=== PATIENT | female | born 1985 | race Caucasian/White ===

== ENCOUNTER 2017-03-26 10:00 | Outpatient (CLI) | payer BC, SELFPAY | END 2017-03-26 10:40 | disposition home or self-care (01) | LOC: WPOUT 15:00 → WP 15:01 | PROVIDERS: Family Provider Family Medicine; PCP Family Medicine; Visit Provider Obstetrics & Gynecology | DX: O92.70 Unspecified disorders of lactation (principal) | CPT/HCPCS: 96152 ==

== ENCOUNTER → 2018-12-17 | Outpatient (CLI) | payer OTHER, SELFPAY ==
[2018-12-17 08:30] VITALS: BMI 23.3
[2018-12-17 19:15] LABS: Chlamydia Trachomatis by PCR Negative (Negative); Neisserai gonorrhoeae by PCR Negative (Negative); Probe Check PASS; Sample Adequacy Control PASS; Specimen Processing Control PASS
[2018-12-22 16:49] LABS: HPV APTIMA, High Risk Negative (Negative)
== END | disposition home or self-care (01) ==
LOC: LABSPEC 15:18
PROVIDERS: Family Provider Family Medicine; PCP Family Medicine; Referring Provider Nurse Practitioner Women's Health; Visit Provider Nurse Practitioner Women's Health
DX: Z34.80 Encounter for supervision of other normal pregnancy, unspecified trimester (principal)
CPT/HCPCS: 87086; 87088; 87491; 87591; 87624; 88175; G0145

== ENCOUNTER → 2018-12-25 | Outpatient (CLI) | payer OTHER, SELFPAY ==
[2018-12-17 08:30] VITALS: BMI 23.3
[2018-12-25 17:10] LABS: Absolute Lymphocyte Count 1.85 X10^3/uL (0.83-4.51); Absolute Neutrophil Count 8.5 X10^3/uL (2.0-7.7); Basophil# 0.05 X10^3/uL; Basophil% 0.4 % (0-1); Eosinophil# 0.06 X10^3/uL; Eosinophils% 0.5 % (0-5); Hematocrit 36.9 % (37-47); Hemoglobin 12.1 g/dL (12.0-15.0); Lymphocyte # 1.85 X10^3/ul (4.0); Lymphocyte % 16.1 % (19-41); Mean Corp Hgb Conc 32.8 g/dL (32-36); Mean Corpuscular Hgb 29.4 pg (27.0-32.0); Mean Corpuscular Volume 89.8 fL (81-99); Mean Platelet Vol. 10.7 fl (6.2-12.0); Monocyte# 1.03 X10^3/uL; Monocyte% 8.9 % (0-10); NRBC Flagged by Analyzer 0 % (0-5); Neutrophil # 8.48 X10^3/uL (2.7-7.7); Neutrophil % 73.7 % (47-70); Platelet Count 271 K/mm3 (150-450); RBC Distribution Width CV 12.3 % (11.6-14.6); RBC Distribution Width SD 40.6 fl (35.1-43.9); Red Blood Count 4.11 M/mm3 (4.2-5.4); White Blood Count 11.5 K/mm3 (4.4-11.0)
[2018-12-25 18:21] LABS: HIV - WCH Non-Reactive (Nonreactive); Rubella IgG 61.1 IU/mL
[2018-12-26 02:38] LABS: Rapid Plasmin Reagin (RPR) NONREACTIVE (NONREACTIVE)
== END | disposition home or self-care (01) ==
LOC: LAB 15:44
PROVIDERS: Family Provider Family Medicine; PCP Family Medicine; Referring Provider Nurse Practitioner Women's Health; Visit Provider Nurse Practitioner Women's Health
DX: Z34.81 Encounter for supervision of other normal pregnancy, first trimester (principal)
CPT/HCPCS: 85025; 86592; 86703; 86762; 86850; 86900; 86901

== ENCOUNTER → 2018-12-30 | Outpatient (CLI) | payer OTHER, SELFPAY ==
[2018-12-17 08:30] VITALS: BMI 23.3
--- NOTE | 2018-12-30 08:55 | US_ITS ---
STUDY: FIRST TRIMESTER OBSTETRICAL ULTRASOUND REASON FOR EXAM: Female, 33 years old . dates. LMP: October 15, 2018 TECHNIQUE: Transabdominal and Transvaginal TECHNICAL QUALITY: Adequate. PRIOR ULTRASOUND: None. FINDINGS: There is visualization of a single gestational sac in a normal intrauterine position. The gestational sac shape is within normal limits. There is a visualized yolk sac. The yolk sac measures 5.4 mm. The placenta lies posteriorly. There is visualization of a live embryo. The crown-rump length (CRL) measures 4.2 cm, indicating an estimated gestational age (EGA) of 10 weeks, 5 days. There is demonstrated cardiac activity with a heart rate of 156 bpm. The estimated gestation age (EGA) by LMP is 10 weeks, 6 days. The estimated date of delivery (ROMAINE) by LMP is July 21, 2018. The estimated gestation age (EGA) by US is 10 weeks, 5 days. The estimated date of delivery (ROMAINE) by US is July 22, 2018. The uterus measures 15.5 cm x 9.7 cm x 5.8 cm. Subchorionic hematoma is seen measuring 2 cm x 3.5 signed by 1.3 cm. There is no demonstrated uterine fibroid. The cervix is closed. The right ovary measures 3.1 cm x 2.8 cm x 1.3 cm. There is no right ovarian cyst. There is no visualized right adnexal mass or complex lesion. The left ovary measures 2.6 cm x 2.2 cm x 0.9 cm. There is no left ovarian cyst. There is no visualized left adnexal mass or complex lesion. There is no fluid in the cul de sac. US/OB Limited With Biometrics IMPRESSION: Single live intrauterine gestation with a mean gestational age of 10 weeks and 5 days. Subchorionic hematoma. Electronically Signed: Oscar Jeffries, at 11:08 EDT , Service support ,
== END | disposition home or self-care (01) ==
LOC: OPUS 08:54
PROVIDERS: Family Provider Family Medicine; PCP Family Medicine; Referring Provider Nurse Practitioner Women's Health; Visit Provider Nurse Practitioner Women's Health
DX: Z34.80 Encounter for supervision of other normal pregnancy, unspecified trimester (principal)
CPT/HCPCS: 76816

== ENCOUNTER → 2019-04-30 08:47 | Outpatient (CLI) | payer OTHER, SELFPAY ==
[2019-04-30 08:42] VITALS: BMI 23.3
[2019-04-30 09:05] LABS: Absolute Lymphocyte Count 1.95 X10^3/uL (0.83-4.51); Absolute Neutrophil Count 7.4 X10^3/uL (2.0-7.7); Basophil# 0.04 X10^3/uL; Basophil% 0.4 % (0-1); Eosinophil# 0.06 X10^3/uL; Eosinophils% 0.6 % (0-5); Hematocrit 37.7 % (37-47); Hemoglobin 12.1 g/dL (12.0-15.0); Lymphocyte # 1.95 X10^3/ul (4.0); Lymphocyte % 18.7 % (19-41); Mean Corp Hgb Conc 32.1 g/dL (32-36); Mean Corpuscular Hgb 28.8 pg (27.0-32.0); Mean Corpuscular Volume 89.8 fL (81-99); Mean Platelet Vol. 10.3 fl (6.2-12.0); Monocyte# 0.85 X10^3/uL; Monocyte% 8.1 % (0-10); NRBC Flagged by Analyzer 0 % (0-5); Neutrophil # 7.38 X10^3/uL (2.7-7.7); Neutrophil % 70.8 % (47-70); Platelet Count 204 K/mm3 (150-450); RBC Distribution Width CV 12.5 % (11.6-14.6); White Blood Count 10.4 K/mm3 (4.4-11.0)
[2019-04-30 09:55] LABS: Hepatitis B Surface Antigen Non-Reactive (Nonreactive)
== END ==
PROVIDERS: PCP Family Medicine; Referring Provider Obstetrics & Gynecology; Visit Provider Obstetrics & Gynecology
DX: Z34.80 Encounter for supervision of other normal pregnancy, unspecified trimester (principal)
CPT/HCPCS: 36415; 85025; 87340

== ENCOUNTER → 2019-06-26 15:29 | Outpatient (CLI) | payer OTHER, SELFPAY ==
[2019-06-26 13:21] VITALS: BMI 23.3
== END ==
PROVIDERS: PCP Family Medicine; Referring Provider Obstetrics & Gynecology; Visit Provider Obstetrics & Gynecology
DX: Z3A.36 36 weeks gestation of pregnancy (principal)
CPT/HCPCS: 87081

== ENCOUNTER → 2019-07-17 16:27 | Outpatient (CLI) | payer OTHER, SELFPAY ==
[2019-07-17 10:26] VITALS: BMI 23.3
--- NOTE | 2019-07-17 16:29 | US_ITS ---
STUDY: SECOND AND THIRD TRIMESTER OBSTETRICAL ULTRASOUND REASON FOR EXAM: Female, 34 years old. Small for dates. LMP: October 15, 2018. TECHNIQUE: Transabdominal TECHNICAL QUALITY: Adequate. PRIOR ULTRASOUND: December 30, 2018. FINDINGS: There is a single intrauterine fetus. The fetus is in a cephalic presentation. There is demonstrated cardiac activity with a heart rate of 144 bpm. There is a normal amniotic fluid volume. The largest amniotic fluid pocket measures 4.38 cm. The amniotic fluid index (ATIF) is 11.38 cm. The placenta is posterior in location and is not low lying. There are Grade 3 placental changes. The cervix is obscured. BIOMETRY: BPD: 9.6 cm: 39 weeks, 2 days HC: 34.96 cm: 40 weeks, 5 days AC: 35.21 cm: 39 weeks, 1 days FL: 7.66 cm: 39 weeks, 2 days CI: 79 FL/BPD: 80 FL/HC: FL/AC: 22 HC/AC: 0.99 age by current US: 39 weeks, 5 days. ROMAINE by current US: July 19, 2019.. Estimated weight: 3752 grams, +/- 548 grams, 70 %. age by prior US: 39 weeks, 3 days. ROMAINE by prior US: July 21, 2019. Age by LMP: 39 weeks, 2 days. ROMAINE by LMP: July 22, 2019. US/OB Limited With Biometrics IMPRESSION: 1. Live single intrauterine at 39 weeks, 5 days. ROMAINE is July 19, 2019. There is adequate interval growth since the prior ultrasound. 2. EFW of 3752 g. This is at the 70th percentile. 3. ATIF of 11.38 cm. 4. Posterior grade 3 placenta. 5. Vertex presentation. Electronically Signed: Atul Pacheco DO at 21:30 EDT Tel [phone], Service support ,
== END ==
LOC: US 16:29
PROVIDERS: PCP Family Medicine; Referring Provider Obstetrics & Gynecology; Visit Provider Obstetrics & Gynecology
DX: O26.849 Uterine size-date discrepancy, unspecified trimester (principal); Z3A.00 Weeks of gestation of pregnancy not specified
CPT/HCPCS: 76816

== ENCOUNTER → 2019-07-28 16:22 | Outpatient (CLI) | payer OTHER, SELFPAY ==
[2019-07-24 10:58] VITALS: BMI 23.3
[2019-07-28 15:13] VITALS: BMI 23.3
--- NOTE | 2019-07-28 16:24 | US_ITS ---
STUDY: SECOND AND THIRD TRIMESTER OBSTETRICAL ULTRASOUND REASON FOR EXAM: Female, 34 years old. ATIF only. LMP: October 15, 2018. TECHNIQUE: Transabdominal TECHNICAL QUALITY: Adequate. PRIOR ULTRASOUND: July 17, 2019 and December 30, 2018. FINDINGS: There is a single intrauterine fetus. The fetus is in a cephalic presentation. There is demonstrated cardiac activity with a heart rate of 135 bpm. There is decreased amniotic fluid volume consistent with oligohydramnios. The largest amniotic fluid pocket measures 2.1 to cm. The amniotic fluid index (ATIF) is 3.2 cm. The placenta is posterior in location and is not low lying. There are Grade 3 placental changes. The cervix is not visualized. age by prior US: 40 weeks, 6 days. ROMAINE by prior US: July 21, 2018. Age by LMP: 40 weeks, 5 days. ROMAINE by LMP: July 22, 2018. US/OB Limited (No Biometrics) IMPRESSION: 1. Live single intrauterine in a vertex presentation. 2. Oligohydramnios. The ATIF is 3.2 cm. A preliminary report was given to the ordering physician by the retaining room cutter at the completion of the study. Electronically Signed: Atul Pacheco DO at 16:56 EDT Tel [phone], Service support ,
== END ==
LOC: US 16:24
PROVIDERS: PCP Family Medicine; Visit Provider Obstetrics & Gynecology
DX: O48.0 Post-term pregnancy (principal); Z3A.00 Weeks of gestation of pregnancy not specified
CPT/HCPCS: 76815

== ENCOUNTER 2019-07-28 19:37 | Inpatient (IN) | payer OTHER, SELFPAY ==
[2019-07-28 15:13] VITALS: BMI 23.3
[2019-07-28] MEDS: Lactated Ringers 1,000 ML 50 ML IV (20:15)
[2019-07-28 20:26] VITALS: BP 141/89; PULSE 67; O2SAT 98
[2019-07-28 20:43] VITALS: BMI 31.5
[2019-07-28 21:00] LABS: Absolute Lymphocyte Count 2.04 X10^3/uL (0.83-4.51); Absolute Neutrophil Count 7.8 X10^3/uL (2.0-7.7); Basophil# 0.03 X10^3/uL; Basophil% 0.3 % (0-1); Eosinophil# 0.08 X10^3/uL; Eosinophils% 0.7 % (0-5); Hematocrit 35.7 % (37-47); Hemoglobin 11.6 g/dL (12.0-15.0); Lymphocyte # 2.04 X10^3/ul (4.0); Lymphocyte % 18.9 % (19-41); Mean Corp Hgb Conc 32.5 g/dL (32-36); Mean Corpuscular Hgb 29.1 pg (27.0-32.0); Mean Corpuscular Volume 89.5 fL (81-99); Mean Platelet Vol. 12.4 fl (6.2-12.0); Monocyte# 0.88 X10^3/uL; Monocyte% 8.1 % (0-10); NRBC Flagged by Analyzer 0 % (0-5); Neutrophil # 7.75 X10^3/uL (2.7-7.7); Neutrophil % 71.6 % (47-70); Platelet Count 203 K/mm3 (150-450); RBC Distribution Width CV 13.1 % (11.6-14.6); RBC Distribution Width SD 42.7 fl (35.1-43.9); Red Blood Count 3.99 M/mm3 (4.2-5.4); White Blood Count 10.8 K/mm3 (4.4-11.0)
[2019-07-28] MEDS: Oxytocin 30 units/NS 500 ml 30 UNITS/500 ML IV.SOLN IV (21:00)
[2019-07-28 21:02] VITALS: TEMP 37.1
[2019-07-28 21:04] VITALS: BP 131/77; PULSE 61; O2SAT 98
[2019-07-28 22:03] VITALS: BP 111/72; PULSE 65; TEMP 37.1
[2019-07-28 23:11] VITALS: BP 134/93; PULSE 71; TEMP 36.2
[2019-07-29] VITALS (39 sets, daily range): BP systolic 111–143; BP diastolic 58–99; PULSE 60–104; RESP 14–17; TEMP 36.4–37.1; O2SAT 83–100
[2019-07-29] MEDS: Lactated Ringers 500 ML 999 ML IV (02:09)
--- NOTE | 2019-07-29 03:14 | PCM.HPOB.BLA ---
- Problem List (1) Hematoma, broad ligament Status: Acute Comment: post #2-resolved spontaneously (2) Status: Acute Qualifiers: Comment: NIPT- low risk; declines carrier and ntd screening. declined glucose drink, home testing WNL. Growth US normal (3) Supervision of other normal Status: Acute Comment: PRR PC Ro, Orly. Spouse: Truman History and Physical Date of Admission: 07/29/19 Intake Vital Signs 07/28/19 BMI 23.3 07/28/19 Height 5 ft 6 in 07/28/19 Weight: 195 lb 2 oz 07/28/19 BMI 31.4 07/28/19 BP 126/80 H Intake Visit Reasons: 41 WK OB/NST [employer] Required: No Is patient in pain?: No Allergies No Known Allergies Allergy (Verified 07/28/19 15:09) Medications docosahexaenoic acid 200 mg capsule mg PO cap 12/17/18 [History Confirmed 07/28/19] Last Menstral Period: 10/15/18 Zika: Zika virus screening: Negative : No PFSH PFSH Medical History Egg donor (Acute) Surgical History H/O breast augmentation (Acute) H/O discectomy (Acute) Hx of appendectomy (Acute) Family History Mother Hypertension Father Hypertension Social History (Updated 07/28/19 @ 16:[address] Sunitha Gaming MD) number of children: 2 current occupational status: unemployed Smoking Status: Never smoker alcohol intake: never substance use type: does not use seatbelt use: always do you feel safe at home: Yes additional social history: [employer]. Pregancy History 4 Elective abortions Hx Para 2 Spontaneous abortions 1 Hx # Term Pregnancies 2 Ectopic pregnancies Hx # Pregnancies Multiple births # of living children 2 Past Pregnancies Del. Date Name GA/Weeks Outcome Route Bth Weight Infant Gen Labor Lgth Anesthesia Del Locatn Provider FOB 09/10/08 Ro 40 live - full term 7 lbs. Female 26 hours epidural [facility] Yo 03/02/17 Orly 40 live - full term 7 lbs. 12 oz. Female 12 hours epidural [facility] Dr. Nemo Chen HPI 41 WK OB/NST: Details: ABDULAZIZ PALMA is a 34 year old who presents for routine OB visit. She is at 41 weeks and had a reactive NST and US showed low fluid at 3.2 cm therefore IOL is now recommended. Patient is agreeable but prefers minimal intervention as much as possible. OB Visit ROMAINE Calculator Estimated Delivery Date Method Current WG Current Estimate 07/21/19 LMP (Certain) 41w 0d Expected Delivery Route/Plan Labor Preferences- labor support person: plan vivek benja for delivery support, Jackeline, truman pain management options preferred: hypnobirthing- taking class cut cord/dad catch: yes : yes PP control planned: BTO discussed possible routes of delivery and associated risks: [] special requests: [] Specific Issue/Plans flu vaccine: declined tdap vaccine: declined rhogam: na LARC form signed: declined movement and labor precautions reviewed. Problem list reviewed and updated with the most current plan of care details and appropriate orders placed. Relevant counseling for the gestational age provided. Continue routine care and follow up unless otherwise noted in visit notes/problem list details Initial Weight: 158 lb Date EGA Weight BP Urine Prot Glucose FHR FuHt Pres Dilation Effaced St Visit Note 12/17/18 9w 1d 158 lb 8 oz (+8 oz) 112/70 168 01/19/19 13w 6d 164 lb (+6 lb) 106/70 Negative Negative 150 no vb cramping, discussed anxiety about delivery anad recommend mfm consult 02/19/19 18w 2d 170 lb (+12 lb) 120/66 Negative Negative 145 no vb cramping 04/30/19 28w 2d 181 lb (+23 lb) 118/76 Negative Negative 145 SM- no vb lof good fm no regular ctx cbc ordered, declined gct testing, requests home BS testing. 05/15/19 30w 3d 182 lb (+24 lb) 102/60 Negative Negative 145 SM- no vb lof good fm no regular ctx 05/26/19 32w 0d 183 lb (+25 lb) 120/82 Trace Negative 145 32 SM- no vb lof good fm no regular ctx 06/04/19 33w 2d 186 lb (+28 lb) 120/82 Negative Negative 138 33 MH-Good FM. No VB, LOF. Has been having dizzy spells but not today. Also more SOB:pulse ox 98%, pulse 78. Reassured, push fluids, frequent small meals. 06/26/19 36w 3d 189 lb (+31 lb) 116/82 Negative Negative 135 34 Cephalic SM- no vb lof good fm no regular ctx discussed 07/02/19 37w 2d 128/80 Negative Negative 135 36 Cephalic SM- no vb lof good fm no regular ctx 07/09/19 38w 2d 191 lb (+33 lb) 118/86 Negative Negative 135 37 Cephalic 1 SM- no vb lof good fm 07/17/19 39w 3d 192 lb (+34 lb) 130/82 Negative Negative 135 34 Cephalic SM- no vb lof good fm no regular ctx. jenni bedside WNL, growth us ordered for today. 07/24/19 40w 3d 195 lb (+37 lb) 130 37 Cephalic 1 SM- no vb lof good fm no regular ctx discussed 41 week testing and IOL 42 07/28/19 41w 0d 195 lb 2 oz (+37 lb 2 oz) 126/80 Negative Negative 130 Cephalic 2 50 -3 SM- no vb lof good fm no regular ctx. membranes swept. nst today and jenni. plan nst /saturday with IOL saturday if no spontaneous labor Notes Visit Date: 07/28/19 ??No visit notes to display Visit Date: 07/24/19 ??No visit notes to display Visit Date: 07/17/19 ??No visit notes to display Visit Date: 07/09/19 ??No visit notes to display Visit Date: 07/02/19 ??No visit notes to display Visit Date: 06/26/19 ??No visit notes to display Visit Date: 06/04/19 ??No visit notes to display Visit Date: 05/26/19 ??No visit notes to display Visit Date: 05/15/19 ??No visit notes to display Visit Date: 04/30/19 ??No visit notes to display Visit Date: 02/19/19 ??No visit notes to display Visit Date: 01/19/19 ??no vb cramping, discussed anxiety about delivery anad recommend mfm consult ??Sunitha Gaming MD on 01/19/19 Visit Date: 12/17/18 ??No visit notes to display ACOG First Trimester First Trimester: Desire for , Anticipated Course of Care, Toxoplasmosis Precations, Use of Any medications, Sexual activity, Exercise, Sauna/Hot tub use, Seat Belt use, , Indications for US and Screening for Aneuploidy; discussed Alcohol, discussed Tobacco Cessation, discussed Illicit/Recreational Drug/Substance Use, discussed Intimate Partner Violence, discussed Unstable Housing or discussed Environmental/Work Hazards Second Trimester Second Trimester: Signs and Symptoms of Labor, Selecting a care provider, Reproductive Life Planning, Care Planning, Tobacco Cessation, Depression/Anxiety and Intimate Partner Violence Third Trimester Third Trimester: Pain Management Plans, Labor support person(s), Immediate Larc, Movement Monitoring and Feeding Yes ; discussed Trial of Labor after Counseling or discussed Circumcision preference Diagnostics Diagnostics Diagnostics Hgb 12.1 g/dL (12.0-15.0) 04/30/19 Hct 37.7 % (37-47) 04/30/19 Details: HIV: Urine Culture: Sequential Screen: NIPT Screen: ROS Const Reports system reviewed and no additional complaints, except as docu Card Reports system reviewed and no additional complaints, except as docu Resp Reports system reviewed and no additional complaints, except as docu GI Reports system reviewed and no additional complaints, except as docu, Reports nausea Reports system reviewed and no additional complaints, except as docu Musc Reports system reviewed and no additional complaints, except as docu Exam Const General: cooperative, healthy appearing, comfortable, anxious [facility] Head: normal to inspection Nose: external nose normal Face and sinus: normal facial exam Neck Neck: normal visual inspection, full ROM, no lymphadenopathy Thyroid: thyroid normal Chest Chest palpation & inspection: normal inspection of the chest Resp Effort & Inspection: normal respiratory effort GI Inspection: normal to inspection Palpation: soft, other (gravid uterus) Other: infant vertex and appropriate size for gestational age Other: Cervical Exam: Extrem General: pedal edema Office Procedures OB NST Non-Stress Test Indications for Monitoring: Yes post term 40+ Heart Rate Baseline: 130 Heart Rate Variability: moderate Movement: Present Heart Rate Accelerations: Present Decelerations: Absent Contractions: Absent Impression: Yes Reactive Non-Stress Test Category 1 Results POC Urinalysis 2 Dip (Clinic) Office Urine Glucose Negative Last Edit by Yanci Espinoza on 07/28/19 15:40 Office Urine Protein Negative Last Edit by Yanci Espinoza on 07/28/19 15:40 Assessment & Plan Problems 1. 41 weeks gestation of Z3A.41 NIPT- low risk; declines carrier and ntd screening. declined glucose drink, home testing WNL. Growth US normal 2. Supervision of other normal Z34.80 PRR PC Orly Starr. Spouse: Truman 3. Hematoma, broad ligament N83.7 post #2-resolved spontaneously 34 yo @ 41 weeks presents IOL for oligohydramnios Patient presents IOL, plan management for , pitocin/AROM Pain management: minimal intervention. GBS [negative]. Management of any complications: oligo I have reviewed the [facility] and made any clinically relevant updates. Orders Orders: POC Urinalysis 2 Dip (Clinic) Today OB NST Today Z3A.41 Coding Level of Care Code OB Routine Diagnoses 41 weeks gestation of Z3A.41 ??Weeks of gestation: 41 weeks Supervision of other normal Z34.80 Hematoma, broad ligament N83.7 Additional Codes Non-Stress Test (00585)
[2019-07-29] MEDS: fentaNYL-bupivacaine (epidural) 100 ML BAG EPIDURAL (03:15)
[2019-07-29] MEDS: Oxytocin 30 units/NS 500 ml 30 UNITS/500 ML IV.SOLN 334 UNITS IV (04:20)
--- NOTE | 2019-07-29 04:28 | OP.PCM_ITS ---
Problem List (1) Hematoma, broad ligament Status: Acute Comment: post #2-resolved spontaneously (2) Status: Acute Qualifiers: Comment: NIPT- low risk; declines carrier and ntd screening. declined glucose drink, home testing WNL. Growth US normal (3) Supervision of other normal Status: Acute Comment: PRR PC Orly Starr. Spouse: Truman Report of Operation Date of Procedure: 07/29/19 Vaginal Delivery Maternal Presentation: Medically Indicated Induction iol oligo 41 weeks Method of Induction: Pitocin Amniotic Membrane Rupture Type: Spontaneous Amniotic Fluid Description: Clear Final ROMAINE: 07/21/19 Gestational age: 41 Weeks and 1 Days Date of Procedure: 07/29/19 Pre-Operative Diagnosis: iol oligo 41 weeks Post-Operative Diagnosis: same Surgery/ Procedure Performed: Spontaneous Vaginal Delivery Type of Anesthesia: Epidural Description of Procedure: Patient began pushing and delivered the head in the LEIGH presentation. The head was delivered atraumatically. The anterior and posterior shoulders delivered without complication followed by the rest of the infant and the was placed on the maternal abdomen. Delayed cord clamping was employed for approximately 60 seconds. Cord was clamped and cut and gentle traction was applied to the cord and the placenta delivered spontaneously immediately following it was noted to be intact with three-vessel cord. The perineum and vagina were inspected and noted to have no laceration. EBL was 100 cc. Patient and infant tolerated delivery well. Presentation: LEIGH Placental Delivery Description: Spontaneous Placenta Disposition: [facility] Cord Entanglement: None Estimated Blood Loss: 100 A gender: Female Episiotomy Description: None Laceration: None Medications given after delivery: IV Pitocin Complications: None Multi Select Codes - Urinary/Genital Urinary/Genital CPT Codes: 82059 Vaginal Delivery [facility]
[2019-07-29] MEDS: Prenatal Vits Tablet 1 TABLET PO (11:02)
[2019-07-29] MEDS: Naproxen 250 MG Tablet 500 MG PO ×2 (11:03→21:24)
--- NOTE | 2019-07-29 15:38 | NURSING ---
1430: Pt states was able to void x 2 in 30 minutes and did not strain with these voids. FF @U, midline. Small VB.
[2019-07-29] MEDS: Acetaminophen 500 MG Tablet 1000 MG PO (16:49)
[2019-07-30 04:34] VITALS: BP 100/59; PULSE 58
[2019-07-30 05:11] VITALS: BP 100/59; PULSE 58; RESP 14; TEMP 36.6
[2019-07-30] MEDS: Acetaminophen 500 MG Tablet 1000 MG PO (05:20)
--- NOTE | 2019-07-30 06:33 | DCINST_ITS ---
Discharge Diet: No Restrictions Discharge Activity: Return to Normal Activity, May not drive while taking narcotic pain medications., May Shower May resume sexual activity in: 4-6 weeks Call your doctor if your incision/area has: Continuous Slow Oozing, Sudden Increased Bleeding, Increased Pain/ Swelling, Increased Redness, Foul Smelling Discharge Additional Instructions: If you experience any of the following, contact your healthcare provider. * Bleeding that soaks a pad every hour for 2 hours * Fever 100.4 or higher * Unrelieved incision or abdominal pain * Swelling, redness, discharge or bleeding from your incision or episiotomy site * Your incision begins to separate * Problems urinating (including inability to urinate or burning while urinating). * Visual changes * Severe headache * Flu-like symptoms * Pain or redness in one of both of your breasts * Pain, warmth, tenderness or swelling in your legs, especially the calf area * Frequent nausea and vomiting * Symptoms of depression or anxiety If you experience any of the following, call 911 or go to the nearest Emergency Room. * Chest pain * Problems breathing * Seizure activity * Partial or complete paralysis of a body part, slurred speech, weakness or drooping of the face, or a sudden inability to walk or hold your balance Allergies/Adverse Reactions: Allergies No Known Allergies Allergy (Verified 07/28/19 20:42) Medications to take at Discharge Tablet 1 tab PO DAILY 07/28/19 Please Follow Up With: Sunitha Gaming MD - [phone] When: Call to make an appointment with your doctor in 6 weeks. If you had elevated Blood pressure or 4th degree laceration you will need to be seen in 2 weeks. Primary Care Physician: Huseyin Aldana MD [Primary Care Provider] - Test Results: Test results from this visit will be discussed in further detail at your follow- up appointment, if applicable.
--- NOTE | 2019-07-30 06:33 | PCM.PN.OB ---
Subjective: doing well no complaints pain controlled no CP SOB N V ambulating well tolerating po lochia moderate, going well - Physical Exam Vitals/I&O's: Vital Signs Temp Pulse Resp BP Pulse Ox 97.8 F 58 L 14 100/59 L 98 07/30/19 05:11 07/30/19 05:11 07/30/19 05:11 07/30/19 05:11 07/29/19 04:27 Oxygen Delivery Method Room Air Weight: 195 lb 4 oz Body Mass Index (BMI) 31.5 Intake and Output for Last 24 Hours 07/28/19 07/29/19 07/30/19 23:59 23:59 23:59 Intake Total 1644.27 / 1644.27 Output Total 800 / 800 Balance 844.27 / 844.27 Microbiology Past 72 Hours 07/28/19 20:45 Mucosa - Nasopharyngeal Coronavirus COVID-19 PCR - Final Current Medications Acetaminophen (Tylenol) 1,000 mg PO Q8H PRN PRN PRN Reason: Pain Score 1-3/10 Last Admin: 07/30/19 05:20 Dose: 1,000 mg Documented by: Bisacodyl (Dulcolax) 10 mg RECTAL UD PRN PRN Reason: If no BM Dibucaine (Dibucaine) 1 applic TOPICAL TID PRN PRN; Protocol PRN Reason: Discomfort Hydrocortisone (Hytone) 1 applic TOPICAL TID PRN PRN; Protocol PRN Reason: Discomfort Methylergonovine Maleate (Methergine) 0.2 mg IM X1 PRN PRN Reason: Excess bleeding/uterine atony Naproxen (Naprosyn) 500 mg PO Q8H PRN PRN PRN Reason: Pain Score 1-3/10 Last Admin: 07/29/19 21:24 Dose: 500 mg Documented by: Ondansetron HCl (Zofran) 4 mg IV Q4H PRN PRN PRN Reason: Nausea Oxycodone HCl (Oxyir) 5 - 10 mg PO Q4H PRN PRN PRN Reason: Pain Score 4-10/10 Multivit/Folic Acid/Iron (Prenatabs Fa) 1 tablet PO DAILY@1200 SEBLE Last Admin: 07/29/19 11:02 Dose: 1 tablet Documented by: Senna/Docusate Sodium (Senokot-S, Erna-Colace) 1 - 2 tablet PO DAILY PRN PRN PRN Reason: Constipation Simethicone (Mylicon) 80 mg PO PCHS PRN PRN Reason: Indigestion/Stomach pain Sodium Chloride () 5 - 15 ml IV UD PRN PRN Reason: SALINE FLUSH Medical Necessity - Tobacco Use Smoking Status: Never smoker Assessment/Plan All Active Problems (Last Reviewed 07/28/19 @ 15:09 by Yanci Espinoza) (Acute) Supervision of other normal (Acute) Hematoma, broad ligament (Acute) Subchorionic hemorrhage in first trimester (Resolved) s/p PPD # 1 1. routine post delivery care 2. breast feeding- support given 3. rh positive 4. rubella immune
--- NOTE | 2019-07-30 06:33 | PCM.DCVAG ---
Discharge Diet: No Restrictions Discharge Activity: Return to Normal Activity, May not drive while taking narcotic pain medications., May Shower May resume sexual activity in: 4-6 weeks Call your doctor if your incision/area has: Continuous Slow Oozing, Sudden Increased Bleeding, Increased Pain/ Swelling, Increased Redness, Foul Smelling Discharge Additional Instructions: If you experience any of the following, contact your healthcare provider. Bleeding that soaks a pad every hour for 2 hours Fever 100.4 or higher Unrelieved incision or abdominal pain Swelling, redness, discharge or bleeding from your incision or episiotomy site Your incision begins to separate Problems urinating (including inability to urinate or burning while urinating). Visual changes Severe headache Flu-like symptoms Pain or redness in one of both of your breasts Pain, warmth, tenderness or swelling in your legs, especially the calf area Frequent nausea and vomiting Symptoms of depression or anxiety If you experience any of the following, call 911 or go to the nearest Emergency Room. Chest pain Problems breathing Seizure activity Partial or complete paralysis of a body part, slurred speech, weakness or drooping of the face, or a sudden inability to walk or hold your balance Allergies/Adverse Reactions: Allergies No Known Allergies Allergy (Verified 07/28/19 20:42) Medications to take at Discharge Tablet 1 tab PO DAILY 07/28/19 Please Follow Up With: Sunitha Gaming MD - [phone] When: Call to make an appointment with your doctor in 6 weeks. If you had elevated Blood pressure or 4th degree laceration you will need to be seen in 2 weeks. Primary Care Physician: Huseyin Aldana MD [Primary Care Provider] - Test Results: Test results from this visit will be discussed in further detail at your follow-up appointment, if applicable.
[2019-07-30 10:00] VITALS: BP 126/75; PULSE 73; RESP 18; TEMP 36.6
[2019-07-30 10:22] VITALS: BP 126/75; PULSE 73
== END 2019-07-30 11:05 | disposition home or self-care (01) | DRG 806 ==
PROVIDERS: Admitting Provider Obstetrics & Gynecology; PCP Family Medicine; Referring Provider Obstetrics & Gynecology; Visit Provider Obstetrics & Gynecology
DX: O48.0 Post-term pregnancy (principal); O41.03X0 Oligohydramnios, third trimester, not applicable or unspecified; Z37.0 Single live birth; Z3A.41 41 weeks gestation of pregnancy
CPT/HCPCS: 59025; 59050; 85025; 86850; 86900; 86901; 87635; 99218; G2023; J7120; G0378; U0004

== ENCOUNTER 2019-09-07 12:15 | Outpatient (CLI) | payer OTHER, SELFPAY ==
[2019-09-07 08:10] VITALS: BMI 28.9
== END 2019-09-07 12:45 | disposition home or self-care (01) ==
LOC: WPOUT 12:18 → WP 12:19
PROVIDERS: PCP Family Medicine; Referring Provider Obstetrics & Gynecology; Visit Provider Obstetrics & Gynecology
DX: O91.23 Nonpurulent mastitis associated with lactation (principal)
CPT/HCPCS: 96158

== ENCOUNTER → 2021-10-31 | Outpatient (CLI) | payer BC, SELFPAY ==
[2021-10-31 15:52] LABS: Internal QC Validated? YES +Cl - CLEAR BKGD; Pregnancy, Serum, hCG Quali. POSITIVE Negative
== END | disposition home or self-care (01) ==
PROVIDERS: PCP Internal Medicine; Visit Provider Internal Medicine
DX: N91.2 Amenorrhea, unspecified (principal)
CPT/HCPCS: 36415; 84703

== ENCOUNTER → 2021-10-31 | Outpatient (CLI) | payer BC, SELFPAY ==
--- NOTE | 2021-10-31 14:10 | RAD_ITS ---
STUDY: X-RAY CHEST REASON FOR EXAM: Female, 36 years old. Right sided upper back/chest pain TECHNIQUE: PA and lateral views of the chest. COMPARISON: Comparison is made with prior study 03/19/2017. FINDINGS: The lungs are clear and expanded. There is no demonstrated pleural abnormality. Normal size heart. Normal mediastinum and colin. Normal visualized pulmonary arteries. Normal visualized aortic arch and descending thoracic aorta. Normal visualized thoracic spine. Normal visualized ribs, clavicles, and shoulders. There is no demonstrated abnormality of the visualized soft tissue structures of the upper abdomen. RAD/Chest PA and Lateral IMPRESSION: Normal x-ray examination of the chest. Electronically Signed: Oscar Jeffries MD at 15:02 EDT ,
== END | disposition home or self-care (01) ==
LOC: RAD 13:57
PROVIDERS: PCP Internal Medicine; Referring Provider Internal Medicine; Visit Provider Internal Medicine
DX: M54.6 Pain in thoracic spine (principal)
CPT/HCPCS: 71046